=== PATIENT | female | born 1965 | race American Indian/Alaskan Native ===

== ENCOUNTER 2017-01-21 04:32 | Emergency (ER) | payer OTHER ==
[2017-01-21 04:32] VITALS: BMI 26.6
[2017-01-21 05:01] VITALS: BP 174/99; PULSE 84; RESP 16; TEMP 98.9; O2SAT 100
[2017-01-21] MEDS ORDERED: Albuterol-Ipratrop 3 mg / 0.5 (3 ml) UD INH STA (05:09)
--- NOTE | 2017-01-21 05:19 | ED PDOC ---
HPI: CCC, URI, Sore Throat Time Seen by Provider: 01/21/17 04:58 Chief Complaint (Nursing): Cough, Cold, Congestion Chief Complaint (Provider): Cough History Per: Patient History/Exam Limitations: no limitations Onset/Duration Of Symptoms: Other (x5 weeks) Current Symptoms Are (Timing): Still Present Associated Symptoms: Nasal Congestion. denies: Fever Additional Complaint(s): 51 year old female presents to ED with complaints of cough x5 weeks and has a past medical history of HTN, asthma, and anemia. (+) yellow sputum and nasal congestion. (-) SOB, chest pain, fever, hemoptysis, or recent travel. Patient reports she was seen at 2 urgent cares and was prescribed Zithromax and Levoquin with no relief. PCP: None Past Medical History Reviewed: Historical Data, Nursing Documentation, Vital Signs Vital Signs: Last Vital Signs Temp 98.9 F 01/21/17 04:56 Pulse 84 01/21/17 04:56 Resp 16 01/21/17 04:56 BP 174/99 H 01/21/17 04:56 Pulse Ox 100 01/21/17 05:26 - Medical History PMH: Anemia, Anxiety, Asthma, Depression, Gastritis, Gall Bladder Disease, HTN, Hyperlipidemia, Pancreatitis, Schizophrenia Denies: Chronic Kidney Disease, Sexually Transmitted Disease - Surgical History Surgical History: Denies: No Surg Hx - Family History Family History: States: Hypertension - Social History Alcohol: Occasional - Immunization History Hx Tetanus Toxoid Vaccination: No Hx Influenza Vaccination: No Hx Pneumococcal Vaccination: No - Home Medications Home Medications: Ambulatory Orders Medication Instructions Recorded Nebulizer [Compact Compressor 1 inhaler NEB DAILY 10/11/14 Nebulizer] Albuterol Sulfate [Albuterol Hfa] 2 puff PRN PRN 02/20/15 Ibuprofen [Motrin] 600 mg PO TID PRN #20 tab 02/20/15 Phenylephrine/Dm/Acetaminop/GG 1 tab PO Q6 PRN #20 tab 02/20/15 [Sudafed PE Cold & Cough 325 mg-10 mg-100 mg-5] Prednisone 2 tab PO DAILY #10 tab 02/20/15 Albuterol HFA [Ventolin HFA 90 2 puff IH [id number] PRN #60 puff 01/21/17 mcg/actuation (8 g)] Benzonatate [Tessalon Perle] 100 mg PO Q8 PRN #30 capsule 01/21/17 - Allergies Allergies/Adverse Reactions: Allergies Allergy/AdvReac Type Severity Reaction Status Date / Time Penicillins Allergy ANAPHYLAXIS Verified 01/21/17 05:02 Curb-65 Severity Score - CURB-65 Severity Score Confusion: No Curb-65 Score: 0 Percentage 30-day mortality: 0.6% Review of Systems ROS Statement: Except As Marked, All Systems Reviewed And Found Negative Constitutional: Negative for: Fever ENT: Positive for: Nose Congestion Cardiovascular: Negative for: Chest Pain Respiratory: Positive for: Cough, Sputum (yellow). Negative for: Shortness of Breath, Hemoptysis Physical Exam - Reviewed Nursing Documentation Reviewed: Yes Vital Signs Reviewed: Yes - Physical Exam Appears: Positive for: Non-toxic, No Acute Distress Skin: Positive for: Normal Color, Warm, Dry Eye Exam: Positive for: EOMI, Normal appearance, PERRL ENT: Positive for: Normal ENT Inspection Cardiovascular/Chest: Positive for: Regular Rate, Rhythm. Negative for: Murmur Respiratory: Positive for: Normal Breath Sounds. Negative for: Respiratory Distress Gastrointestinal/Abdominal: Positive for: Normal Exam, Soft. Negative for: Tenderness Back: Positive for: Normal Inspection Neurologic/Psych: Positive for: Alert, Oriented. Negative for: Motor/Sensory Deficits - ECG O2 Sat by Pulse Oximetry: 100 (RA) Pulse Ox Interpretation: Normal - Radiology X-Ray: Interpreted by Me (CXR) X-Ray Interpretation: No Acute Disease Medical Decision Making Medical Decision Makin Initial impression: acute bronchitis v PNA Initial plan: * CXR * Duonebs 3mL INH * Peak flow pre/post Tx Scribe Attestation: Documented by Lauren Kim acting as a scribe for Ángel Tomlinson PA-C. MD Scribe Attestation: All medical record entries made by the Scribe were at my direction and personally dictated by me. I have reviewed the chart and agree that the record accurately reflects my personal performance of the history, physical exam, medical decision making, and the department course for this patient. I have also personally directed, reviewed, and agree with the discharge instructions and disposition. Disposition - Clinical Impression Clinical Impression: Acute bronchitis - Patient ED Disposition Is Patient to be Admitted: No - Disposition Referrals: [facility] [Outside] Disposition: Routine/Home Disposition Time: 05:43 Condition: STABLE Prescriptions: Albuterol HFA [Ventolin HFA 90 mcg/actuation (8 g)] 2 puff IH [id number] PRN #60 puff PRN Reason: Cough Benzonatate [Tessalon Perle] 100 mg PO Q8 PRN #30 capsule PRN Reason: Cough Instructions: Acute Bronchitis (ED) Forms: [facility] (Ukrainian) Print Language: FRISIAN
[2017-01-21] MEDS ORDERED: Albuterol-Ipratrop 3 mg / 0.5 (3 ml) UD ONE (05:20)
--- NOTE | 2017-01-21 08:30 | RAD ---
HISTORY: cough COMPARISON: No prior. TECHNIQUE: Chest PA and lateral FINDINGS: LUNGS: No active pulmonary disease. PLEURA: No significant pleural effusion identified. No pneumothorax apparent. CARDIOVASCULAR: Normal. Calcified granulomata or lymph nodes in the left perihilar and aortopulmonary window regions as well as medial left apex. Abort yes OSSEOUS STRUCTURES: No significant abnormalities. VISUALIZED UPPER ABDOMEN: Normal. OTHER FINDINGS: None. IMPRESSION: No interval acute cardiopulmonary disease appreciated.
== END 2017-01-21 05:56 | disposition home or self-care (01) ==
LOC: H.ER 04:32
DX: J20.9 Acute bronchitis, unspecified (principal); I10 Essential (primary) hypertension; J45.909 Unspecified asthma, uncomplicated; Z88.0 Allergy status to penicillin; F20.9 Schizophrenia, unspecified; F41.9 Anxiety disorder, unspecified